=== PATIENT | male | born 1945 | race Caucasian/White ===

== ENCOUNTER → 2020-10-16 | Outpatient (CLI) | payer MEDICARE | END | disposition home or self-care (01) | LOC: LABWHC1 16:01 | PROVIDERS: ATTEND Internal Medicine | DX: Z03.818 Encounter for observation for suspected exposure to other biological agents ruled out (principal) | CPT/HCPCS: 87635; C9803 ==

== ENCOUNTER → 2021-01-21 | Outpatient (CLI) | payer MEDICARE ==
--- NOTE | 2021-01-21 15:29 | CT ---
EXAMINATION TYPE: CT lumbar spine wo con DATE OF EXAM: 01/21/2021 3:18 PM COMPARISON: None HISTORY: Chronic low back pain. CT DLP: 1700.7 mGycm Automated exposure control for dose reduction was used. Unenhanced CT of the lumbar spine was performed. Bone and soft tissue window settings are submitted as well as coronal and sagittal reconstructions. L1-L2: Moderate degenerative disc space narrowing with posterior disc bulge. Effacement ventral theca l sac. No evidence for central stenosis or disc herniation. L2-L3: Severe degenerative disc space narrowing with vacuum disc. Moderate posterior disc bulge with effacement ventral thecal sac and mild central stenosis. Bilateral foraminal encroachment. L3-L4: Severe degenerative disc space narrowing with vacuum disc. Moderate posterior disc bulge with effacement ventral thecal sac and mild central stenosis. Bilateral foraminal encroachment. L4-L5: Severe degenerative disc space narrowing with vacuum disc. Moderate posterior disc bulge with effacement ventral thecal sac and mild central stenosis. Bilateral foraminal encroachment. L5-S1: Vacuum disc noted. Posterior disc bulge with effacement of the ventral thecal sac. Right later al recess stenosis. No evidence for central stenosis at this time. IMPRESSION: Multilevel degenerative disc disease with multilevel central stenosis.
== END | disposition home or self-care (01) ==
LOC: RADCTMAIN 14:46
PROVIDERS: ATTEND Internal Medicine
DX: M48.061 Spinal stenosis, lumbar region without neurogenic claudication (principal); M51.36 Other intervertebral disc degeneration, lumbar region
CPT/HCPCS: 72131

== ENCOUNTER → 2021-03-09 | Outpatient (CLI) | payer MEDICARE ==
--- NOTE | 2021-03-09 13:06 | P.PAINCN ---
History of Present Illness - Reason for Consult Consult date: 03/09/21 - History of Present Illness Hilario is a 76-year-old gentleman who presents today as a new patient consult. He presents with multiple complaints of polyarthralgia as well as low back pain. He reports she's had multiple injuries over his lifetime which have necessitated multiple surgeries. He's had surgery for cervical spine fusion, left arm pain secondary to trauma, left knee pain secondary trauma, open heart surgery, as well as has had a stroke which affects his left side. He has pain in the low back which radiates down his leg. He has pain in his left buttock region which is worse with sitting or standing for long periods of time. He has pain in his neck with any activity. He has difficulty performing an activity secondary to his pains. He reports he was very active in the past and is become debilitated secondary to significant osteoarthritis throughout multiple areas of his body. He presents today for evaluation for medication management. He reports that previously he had been on Percocet 2 times a day with very good relief but since his primary care doctor can no longer prescribe the medications he is trying to find a new doctor. He reports the medication is working very well and was able to get him by. He denies any significant drug abuse in the past. As of recently has been drinking alcohol due to his pain but reports he is not a alcohol drinker on a regular basis. Review of Systems: Denies any New chest pain, short of breath, Nausea/vomitting, abdominal pain, bowel or bladder incontinence, or any overt new neurologic symptoms in the upper or lower extremities outside of what is noted in the HPI There is a computed tomography scan of the lumbar spine in the EMR which detail significant osteoarthritis and scoliosis with degenerative disc disease at multiple levels. Past Medical History Past Medical History: Coronary Artery Disease (CAD), Chest Pain / Angina, CVA/TIA, Diabetes Mellitus, Deep Vein Thrombosis (DVT), Hyperlipidemia, My [place]cardial Infarction ([place]), Osteoarthritis (OA), Sleep Apnea/CPAP/BIPAP Additional Past Medical History / Comment(s): hx TIA, no cpap used, "stomach hernia", "blood spots all over", Last Myocardial Infarction Date:: 1990 History of Any Multi-Drug Resistant Organisms: None Reported Past Surgical History: Back Surgery, Coronary Bypass/CABG, Heart Catheterization With Stent, Joint Replacement, Orthopedic Surgery Additional Past Surgical History / Comment(s): surgery left elbow and hand after stroke, CABG 1990, 11 surgeries left leg, left knee cap removed, left knee replacement, mult cardiac stents-does not know how many, spinal fusion, Past Anesthesia/Blood Transfusion Reactions: No Reported Reaction Date of Last Stent Placement:: 2010?? Smoking Status: Current some day smoker - Past Family History Mother Family Medical History: No Reported History Medications and Allergies Home Medications Medication Instructions Recorded Confirmed Type Atorvastatin [Lipitor] 20 mg PO DAILY 03/06/21 03/06/21 History Ezetimibe [Zetia] 10 mg PO DAILY 03/06/21 03/06/21 History Insulin Aspart [NovoLOG Flexpen] 0 units SQ DIRECTED PRN 03/06/21 03/06/21 History Insulin Glargine [Lantus] 55 unit SQ QAM 03/06/21 03/06/21 History Lisinopril-Hctz 10-12.5 mg 1 tab PO DAILY 03/06/21 03/06/21 History [Zestoretic 10-12.5] Oxybutynin Chloride [Ditropan XL] 10 mg PO DAILY 03/06/21 03/06/21 History Pantoprazole Sodium 40 mg PO DAILY 03/06/21 03/06/21 History Zolpidem Tartrate [Ambien] 5 mg PO HS 03/06/21 03/06/21 History oxyCODONE HCL/ACETAMINOPHEN 2 tab PO Q6HR PRN 03/06/21 03/06/21 History [oxyCODONE HCL/ACETAMINOPHEN 5-325] oxyCODONE HCL/ACETAMINOPHEN 1 tab PO Q12H PRN 30 Days #60 tab 03/09/21 Rx [Percocet 7.5-325 mg] Allergies Allergy/AdvReac Type Severity Reaction Status Date / Time aspirin Allergy nose bleed Verified 03/06/21 14:26 pioglitazone [From Actos] Allergy muscle Verified 03/06/21 14:26 spasms Physical Exam General: Awake and alert oriented 3 no distress, forward flexed body position Respiratory exam: No audible wheezing no accessory muscle usage Cardiovascular exam: regular rate, palpable bilateral pulses, no lower extremity edema Abdominal exam: No distention nontender to palpation Cervical spine: Normal alignment, Spurling's negative, right shoulder tenderness, range of motion limited severely. Left liquor rectifier strength is 2 out of 5 compared to the right secondary to orthopedic trauma and surgery. Sensation is decreased in left forearm and left hand compared to the right. Lumbar spine: Loss of lumbar lordosis with a forward flexed body position. Ther e is severe atrophy of the paraspinal and gluteal muscles. Tender to palpation over the spinous processes with evidence of scoliosis. Flexion is preserved. Spinal extension is limited to 0. There is severe limitation in the movement of the lumbar spine and hips. Sacroiliac joints: Tender to palpation over the ischial tuberosity on the left, tender to palpation of the SI joints bilaterally. Oli's test is positive. Gaenslen's test is positive bilaterally Neuro exam: Normal sensation in bilateral upper extremities, deep tendon reflexes are 2+ bilateral upper extremities. Normal sensation in bilateral lower extremities. Right patellar reflexes 1+, right Achilles reflexes 1+. Left patellar reflex unable to assess due to surgery, left Achilles reflexes 1+ Psych exam: Cooperative, appropriate mood Assessment and Plan Assessment: #1 scoliosis #2 polyarthralgia #3 opioid dependence Plan: I've explained to the patient that we are an interventional pain clinic and do not do long-term medication management. I will prescribe him one month of Percocet 7.5 mg 2 times a day to be used as needed. I've expanded using these medications along with alcohol or any other drugs may significantly increase his risk of respiratory depression and . I've made it very clear that this is a temporary prescription until he can follow with Dr. King. He should follow up with Dr. King for medication management. At this time I do not see any significant improvement with any spinal injections. He is welcome to follow up with us for interventional pain procedures in the future if needed. I have spent 29 minutes on patient care today. The time was used to review the medical records including relevant urine studies and Prescription history (MAPs), review of the available imaging, evaluation and examination of the patient, coordination of care with the medical staff and if applicable referring physicians, as well as creation of the medical record. Maps were checked and appropriate. No urine drug screen was taken today. No narcotics contract was taken today as this is a one-time temporary prescription. PQRS Measure Charge Sheet PQRS Narrative: Pain Intensity [Left Leg] 8 Hx Alcohol Use (MH) Yes Home Medications: Ambulatory Orders Atorvastatin [Lipitor] 20 mg PO DAILY 03/06/21 Ezetimibe [Zetia] 10 mg PO DAILY 03/06/21 Insulin Aspart [NovoLOG Flexpen] 0 units SQ DIRECTED PRN 03/06/21 Insulin Glargine [Lantus] 55 unit SQ QAM 03/06/21 Lisinopril-Hctz 10-12.5 mg [Zestoretic 10-12.5] 1 tab PO DAILY 03/06/21 Oxybutynin Chloride [Ditropan XL] 10 mg PO DAILY 03/06/21 Pantoprazole Sodium 40 mg PO DAILY 03/06/21 Zolpidem Tartrate [Ambien] 5 mg PO HS 03/06/21 oxyCODONE HCL/ACETAMINOPHEN [oxyCODONE HCL/ACETAMINOPHEN 5-325] 2 tab PO Q6HR PRN 03/06/21 oxyCODONE HCL/ACETAMINOPHEN [Percocet 7.5-325 mg] 1 tab PO Q12H PRN 30 Days #60 tab 03/09/21
[2021-03-09 13:07] VITALS: BP 149/83; PULSE 75; RESP 18; TEMP 98
== END ==
LOC: PNWHC3 12:34
PROVIDERS: ATTEND Hospitalist
DX: M41.9 Scoliosis, unspecified (principal); M25.50 Pain in unspecified joint; F11.20 Opioid dependence, uncomplicated; I25.10 Atherosclerotic heart disease of native coronary artery without angina pectoris; Z86.73 Personal history of transient ischemic attack (TIA), and cerebral infarction without residual deficits; Z86.718 Personal history of other venous thrombosis and embolism; E78.5 Hyperlipidemia, unspecified; I25.2 Old myocardial infarction; M19.90 Unspecified osteoarthritis, unspecified site; F17.200 Nicotine dependence, unspecified, uncomplicated; Z79.4 Long term (current) use of insulin
CPT/HCPCS: 99211

== ENCOUNTER → 2021-03-23 | Outpatient (CLI) | payer MEDICARE ==
--- NOTE | 2021-03-23 12:02 | XR ---
EXAMINATION TYPE: XR shoulder complete RT DATE OF EXAM: 03/23/2021 CLINICAL HISTORY: 76-year-old male with complain of pain in the humerus and up into the neck with bru ising for 3 days while playing golf. TECHNIQUE: AP and Grashey's view of the right shoulder were obtained. . COMPARISON: None. FINDINGS: There is no acute fracture/dislocation evident in the right shoulder. Degenerative narrowi ng and osteophytic spurring of the acromioclavicular joint. There is a high riding humerus with narro wing of the acromiohumeral space measuring approximately 6.5 mm. This can indicate rotator cuff injur y. Osteophytic spurring at the humeral head. Soft tissues are unremarkable. IMPRESSION: 1. No evidence of acute fracture or dislocation of the right shoulder. 2. Narrowing of the acromiohumeral space measuring 6.5 mm can be seen with rotator cuff injury. 3. Degenerative changes of the acromioclavicular joint.
== END | disposition home or self-care (01) ==
LOC: RADXRMAIN 10:04
PROVIDERS: ATTEND Internal Medicine
DX: M19.011 Primary osteoarthritis, right shoulder (principal)